=== PATIENT | female | born 1955 | race African-American/Black ===

== ENCOUNTER 2018-03-12 22:29 | Emergency (ER) | payer OTHER ==
[2018-03-12] MEDS: IPRATROPIUM (NEB) 0.5 MG/2.5 ML AMP NEB (23:13)
[2018-03-12] MEDS: ALBUTEROL 0.5% (NEB) 2.5 MG/0.5 ML AMP INH (23:13)
[2018-03-12 23:42] LABS: ADD MAN DIFF? NO
[2018-03-12] MEDS: PIPER-TAZO 3.375 GM IV (PMX) 100 ML IVPB (23:43)
[2018-03-12 23:44] LABS: BASOPHILS % 0.2 % (0.0-2.0); EOSINOPHILS # 0.1 10^3/ul (0.0-0.5); EOSINOPHILS % 0.3 % (0.0-7.0); HEMATOCRIT 33.1 % (37.0-47.0); HEMOGLOBIN 11.1 g/dl (12.0-16.0); LYMPHOCYTES # 0.9 10^3/ul (0.8-2.9); LYMPHOCYTES % 5.6 % (15.0-51.0); MEAN CORPUSCULAR HEMOGLOBIN 27.9 pg (29.0-33.0); MEAN CORPUSCULAR HGB CONC 33.5 g/dl (32.0-37.0); MEAN CORPUSCULAR VOLUME 83.2 fl (82.0-101.0); MEAN PLATELET VOLUME 9.5 fl (7.4-10.4); MONOCYTE # 1.5 10^3/ul (0.3-0.9); MONOCYTES % 9.6 % (0.0-11.0); NEUTROPHIL # 12.9 10^3/ul (1.6-7.5); NEUTROPHILS % 83.8 % (39.0-77.0); PLATELET COUNT 227 10^3/UL (140-415); RED BLOOD COUNT 3.98 10^6/ul (4.20-5.40)
[2018-03-12 23:44] LABS: WHITE BLOOD COUNT 15.4 10^3/ul (4.8-10.8)
[2018-03-12 23:49] LABS: AADO2 Arterial 175.7 mmHg (7.0-24.0); Allen Test ACCEPTAB; Arterial Blood Gas Oxygen Sat 98.7 mmHG (95.0-98.0); Arterial COHb 0.4 % (0.0-3.0); Arterial Fraction of Oxyhgb 97.9 % (93.0-99.0); Arterial HCO3 28.3 mmol/L (22.0-26.0); Arterial MetHb 0.4 % (0.0-1.5); Arterial Total Hemglobin 11.9 g/dl (12.0-18.0); Arterial pCO2 46.4 mmhg (35-45); MODE AEROSOL MASK; Site Right Radial
[2018-03-13] LABS: LACTIC ACID 0.7 mmol/L (0.5-2.0)
[2018-03-13 00:01] LABS: ALANINE AMINOTRANSFERASE 32 IU/L (13-69); ALBUMIN/GLOBULIN RATIO 1.33; ALKALINE PHOSPHATASE 102 IU/L (42-121); ANION GAP 15 (8-16); ASPARTATE AMINO TRANSFERASE 36 IU/L (15-46); BILIRUBIN,INDIRECT 0.4 mg/dl (0-1.1); BILIRUBIN,TOTAL 0.4 mg/dl (0.2-1.3); BLOOD UREA NITROGEN 19 mg/dl (7-20); CALCIUM 6.3 mg/dl (8.4-10.2); CARBON DIOXIDE 31 mmol/L (21-31); CHLORIDE 85 mmol/L (97-110); CREATININE 0.85 mg/dl (0.44-1.00); GLUCOSE 107 mg/dl (70-220); POTASSIUM 4.5 mmol/L (3.5-5.1); SODIUM 126 mmol/L (135-144)
[2018-03-13 00:13] LABS: TROPONIN-I 0.024 ng/ml (0.000-0.120)
[2018-03-13] MEDS: VANCOMYCIN 1 GM (PMX) 250 ML IVPB (00:14)
[2018-03-13] MEDS: ALBUTEROL 0.5% (NEB) 2.5 MG/0.5 ML AMP INH (00:30)
[2018-03-13] MEDS: FUROSEMIDE 40 MG INJ IV (00:41)
[2018-03-13 01:31] LABS: B-TYPE NATRIURETIC PEPTIDE 3230 PG/ML (0-125)
[2018-03-13] MEDS ORDERED: ONDANSETRON 4 MG INJ (02:03)
[2018-03-13] MEDS: ONDANSETRON 4 MG INJ IV (02:10)
[2018-03-13 04:13] LABS: LACTIC ACID 1.9 mmol/L (0.5-2.0)
== END 2018-03-13 04:34 | disposition short-term general hospital (02) ==
LOC: E/R 22:29
DX: J96.21 Acute and chronic respiratory failure with hypoxia (principal); I50.9 Heart failure, unspecified; A41.9 Sepsis, unspecified organism; J44.9 Chronic obstructive pulmonary disease, unspecified; E11.22 Type 2 diabetes mellitus with diabetic chronic kidney disease; N18.6 End stage renal disease; I12.0 Hypertensive chronic kidney disease with stage 5 chronic kidney disease or end stage renal disease
CPT/HCPCS: 36415; 36600; 71045; 80053; 82803; 83605; 83880; 84484; 85025; 87040; 93005; 94644; 94645; 94660; 96374; 96375; 99291-25

== ENCOUNTER 2018-05-12 23:16 | Emergency (ER) | payer OTHER ==
[2018-05-12 23:44] LABS: ADD MAN DIFF? NO
[2018-05-12 23:48] LABS: BASOPHILS % 0.3 % (0.0-2.0); EOSINOPHILS # 0.1 10^3/ul (0.0-0.5); EOSINOPHILS % 0.8 % (0.0-7.0); HEMATOCRIT 28.6 % (37.0-47.0); HEMOGLOBIN 8.8 g/dl (12.0-16.0); LYMPHOCYTES # 1.4 10^3/ul (0.8-2.9); LYMPHOCYTES % 9.7 % (15.0-51.0); MEAN CORPUSCULAR HEMOGLOBIN 25.7 pg (29.0-33.0); MEAN CORPUSCULAR HGB CONC 30.8 g/dl (32.0-37.0); MEAN CORPUSCULAR VOLUME 83.4 fl (82.0-101.0); MEAN PLATELET VOLUME 8.8 fl (7.4-10.4); MONOCYTE # 1.4 10^3/ul (0.3-0.9); MONOCYTES % 10.2 % (0.0-11.0); PLATELET COUNT 469 10^3/UL (140-415); RED BLOOD COUNT 3.43 10^6/ul (4.20-5.40); RED CELL DISTRIBUTION WIDTH 15.8 % (11.5-14.5)
[2018-05-12 23:48] LABS: WHITE BLOOD COUNT 14.1 10^3/ul (4.8-10.8)
[2018-05-13] MEDS: HYDROCODONE/APAP (10/325) TAB PO (00:03)
[2018-05-13 00:08] LABS: INR 1.75; PROTIME 20.8 Sec (11.9-14.9); PT RATIO 1.6
[2018-05-13 00:18] LABS: B-TYPE NATRIURETIC PEPTIDE 5340 PG/ML (0-125)
[2018-05-13 00:19] LABS: PARTIAL THROMBOPLASTIN TIME 84.2 Sec (25.0-35.0)
[2018-05-13 00:23] LABS: ALANINE AMINOTRANSFERASE 21 IU/L (13-69); ALBUMIN 4.2 g/dl (3.3-4.9); ALBUMIN/GLOBULIN RATIO 1.23; ALKALINE PHOSPHATASE 125 IU/L (42-121); ANION GAP 18 (8-16); ASPARTATE AMINO TRANSFERASE 24 IU/L (15-46); BILIRUBIN,INDIRECT 0.1 mg/dl (0-1.1); BILIRUBIN,TOTAL 0.1 mg/dl (0.2-1.3); BLOOD UREA NITROGEN 40 mg/dl (7-20); CARBON DIOXIDE 30 mmol/L (21-31); CHLORIDE 94 mmol/L (97-110); CREATININE 0.97 mg/dl (0.44-1.00); GLUCOSE 105 mg/dl (70-220); POTASSIUM 4.6 mmol/L (3.5-5.1); SODIUM 137 mmol/L (135-144); TOTAL PROTEIN 7.6 g/dl (6.1-8.1)
[2018-05-13] MEDS: ONDANSETRON (ODT) 4 MG TAB ODT (00:25)
[2018-05-13 00:26] LABS: CALCIUM 5.7 mg/dl (8.4-10.2)
[2018-05-13 01:47] LABS: PROTIME 21.3 Sec (11.9-14.9); PT RATIO 1.7
[2018-05-13] MEDS: FUROSEMIDE 20 MG INJ IV (01:56)
[2018-05-13 01:58] LABS: PARTIAL THROMBOPLASTIN TIME 92.7 Sec (25.0-35.0)
[2018-05-13] MEDS: DIPHENHYDRAMINE 50 MG CAP PO (03:58)
== END 2018-05-13 04:10 | disposition short-term general hospital (02) ==
LOC: E/R 23:16
DX: I50.9 Heart failure, unspecified (principal); K92.2 Gastrointestinal hemorrhage, unspecified; E83.51 Hypocalcemia; D64.9 Anemia, unspecified; J44.9 Chronic obstructive pulmonary disease, unspecified; E11.22 Type 2 diabetes mellitus with diabetic chronic kidney disease; N18.6 End stage renal disease; I12.0 Hypertensive chronic kidney disease with stage 5 chronic kidney disease or end stage renal disease
CPT/HCPCS: 36415; 71045; 80053; 83880; 84484; 85025; 85378; 85610; 85730; 86850; 86900; 86901; 93005; 93970; 96374; 99285-25

== ENCOUNTER 2018-05-18 20:03 | Emergency (ER) | payer OTHER ==
[2018-05-18 20:27] LABS: ABNORMAL IP MESSAGE 1; HEMATOCRIT 26.2 % (37.0-47.0); HEMOGLOBIN 8.4 g/dl (12.0-16.0); MEAN CORPUSCULAR HEMOGLOBIN 25.5 pg (29.0-33.0); MEAN CORPUSCULAR HGB CONC 32.1 g/dl (32.0-37.0); MEAN CORPUSCULAR VOLUME 79.6 fl (82.0-101.0); NUCLEATED RED BLOOD CELLS% 0.1 /100WBC (0.0-0.0); PLATELET COUNT 422 10^3/UL (140-415); RED BLOOD COUNT 3.29 10^6/ul (4.20-5.40); RED CELL DISTRIBUTION WIDTH 16.3 % (11.5-14.5)
[2018-05-18 20:27] LABS: WHITE BLOOD COUNT 29.5 10^3/ul (4.8-10.8)
[2018-05-18] MEDS: ONDANSETRON 4 MG INJ IV ×2 (20:29→21:56)
[2018-05-18] MEDS: SOD CHLORIDE 0.9% 1,000 ML IV (20:29)
[2018-05-18] MEDS: morphine 4 MG/ML VIAL IV (20:29)
[2018-05-18 20:32] LABS: ADD MAN DIFF? YES; POSITIVE DIFF @See below
[2018-05-18 20:45] LABS: ALANINE AMINOTRANSFERASE 24 IU/L (13-69); ALBUMIN 4.4 g/dl (3.3-4.9); ALBUMIN/GLOBULIN RATIO 1.33; ALKALINE PHOSPHATASE 113 IU/L (42-121); ANION GAP 33 (8-16); ASPARTATE AMINO TRANSFERASE 45 IU/L (15-46); BILIRUBIN,INDIRECT 0.7 mg/dl (0-1.1); BILIRUBIN,TOTAL 0.7 mg/dl (0.2-1.3); BLOOD UREA NITROGEN 49 mg/dl (7-20); CALCIUM 6.9 mg/dl (8.4-10.2); CARBON DIOXIDE 27 mmol/L (21-31); CHLORIDE 76 mmol/L (97-110); CREATININE 2.49 mg/dl (0.44-1.00); GLUCOSE 215 mg/dl (70-220); LIPASE 13 U/L (23-300); POTASSIUM 3.6 mmol/L (3.5-5.1); SODIUM 132 mmol/L (135-144); TOTAL PROTEIN 7.7 g/dl (6.1-8.1)
[2018-05-18 20:57] LABS: TROPONIN-I 0.087 ng/ml (0.000-0.120)
[2018-05-18 21:08] LABS: ANISOCYTOSIS 1+ (0-0); BAND NEUTROPHILS #M 0.5 10^3/ul (0.0-0.6); BAND NEUTROPHILS % (M) 2 % (0-4); LYMPHOCYTES #M 1.1 10^3/ul (0.8-2.9); LYMPHOCYTES % (M) 4 % (15-51); MICROCYTOSIS 1+ (0-0); MONOCYTE #M 0.8 10^3/ul (0.3-0.9); MONOCYTES % (M) 3 % (0-11); PLATELET ESTIMATE NORMAL; POLYCHROMASIA 3+ (0-0); SEGMENTED NEUTROPHILS (M) % 91 % (39-77); SMUDGE%M 2 % (0-0)
[2018-05-18] MEDS: HYDROmorphONE 2 MG/ML SYG IV (21:56)
[2018-05-18] MEDS: CEFEPIME 2GM/50 ML (PMX) 50 ML IVPB (22:46)
[2018-05-18] MEDS: SODIUM CHLORIDE 0.9% 1L BAG IV* (22:47)
[2018-05-18 22:56] LABS: LACTIC ACID 1.2 mmol/L (0.5-2.0)
[2018-05-19] MEDS: VANCOMYCIN 1 GM (PMX) 250 ML IVPB (00:30)
[2018-05-19 00:54] LABS: LACTIC ACID 0.9 mmol/L (0.5-2.0)
[2018-05-19] MEDS: ONDANSETRON 4 MG INJ IV (00:59)
[2018-05-19] MEDS: HYDROmorphONE 0.5 MG/0.5 ML SYG IV (01:00)
[2018-05-19] MEDS ORDERED: LIDOCAINE 2% JELLY 5 ML TOP (01:30)
== END 2018-05-19 02:00 | disposition short-term general hospital (02) ==
LOC: E/R 05-19 02:00
DX: K56.609 Unspecified intestinal obstruction, unspecified as to partial versus complete obstruction (principal); E11.22 Type 2 diabetes mellitus with diabetic chronic kidney disease; N18.6 End stage renal disease; N17.9 Acute kidney failure, unspecified; E86.0 Dehydration; Z79.4 Long term (current) use of insulin; Z94.0 Kidney transplant status
CPT/HCPCS: 36415; 71045; 74176; 80053; 83605; 83690; 84484; 85025; 87040; 93005; 96374; 96375; 96376; 99285-25